=== PATIENT | male | born 1975 | race Caucasian/White ===

== ENCOUNTER 2018-11-26 14:28 | Emergency (ER) | payer MEDICARE, MEDICAID ==
[2018-11-26 14:51] VITALS: BP 158/82
[2018-11-26 15:41] LABS: BARBITURATE SCREEN,URINE NEGATIVE (NEGATIVE); BENZODIAZEPINES SCREEN,URINE POSITIVE (NEGATIVE); EDDP,URINE SCREEN NEGATIVE (NEGATIVE); METHAMPHETAMINE SCREEN, URINE POSITIVE (NEGATIVE)
[2018-11-26 15:42] LABS: TCA SCREEN,URINE NEGATIVE (NEGATIVE); THC SCREEN,URINE 50 NG/ML POSITIVE (NEGATIVE)
--- NOTE | 2018-11-26 15:49 | EDM.PDOCBH ---
ED HPI GENERAL MEDICAL PROBLEM - General Chief Complaint: Behavioral/Psych Time Seen by Provider: 11/26/18 14:33 Source of Information: Reports: Patient, Police History Limitations: Reports: Combative/Threatening, Uncooperative - History of Present Illness INITIAL COMMENTS - FREE TEXT/NARRATIVE: Pt brought here by law enforcement for evaluation for admit to [facility] [place] Pt with hx/ drug and alcohol abuse Pt to be seen by screener from [facility] Pt not currently taking any prescribed medication Onset: Gradual Duration: Chronic - Related Data Allergies Allergy/AdvReac Type Severity Reaction Status Date / Time No Known Allergies Allergy Verified 11/26/18 14:57 Home Meds: Home Meds . [No Known Home Meds] 02/25/16 [History] Past Medical History Cardiovascular History: Reports: Other (See Below) Other Cardiovascular History: pre-hypertensive Psychiatric History: Reports: Anxiety, Bipolar, Depression, PTSD Endocrine/Metabolic History: Reports: Other (See Below) Other Endocrine/Metabolic History: boarderline diabetic-no medications Social & Family History - Family History Family Medical History: Unobtainable - Tobacco Use Smoking Status *Q: Current Status Unknown - Recreational Drug Use Recreational Drug Use: Yes ED ROS GENERAL - Review of Systems Review Of Systems: See Below HEENT: Reports: No Symptoms Respiratory: Reports: No Symptoms Cardiovascular: Reports: No Symptoms GI/Abdominal: Reports: No Symptoms Skin: Reports: No Symptoms Neurological: Reports: No Symptoms Psychiatric: Reports: Agitation, Mood Lability ED EXAM, BEHAVIORAL HEALTH - Physical Exam Exam: See Below Exam Limited By: Uncooperative General Appearance: Anxious Throat/Mouth: Normal Oropharynx Neck: Supple Respiratory/Chest: Lungs Clear Cardiovascular: Regular Rate, Rhythm GI/Abdominal: Soft Neurological: No Motor/Sensory Deficits Psychiatric: Restless, Agitated, Grandiose Thoughts, Paranoid Thoughts, Threatening Behavior COURSE, BEHAVIORAL HEALTH COMP - Course Vital Signs: Last Vital Signs Temp 36.9 C 11/26/18 14:28 Pulse 107 H 11/26/18 14:28 Resp 16 11/26/18 14:28 BP 158/82 H 11/26/18 14:28 Pulse Ox 98 11/26/18 14:28 Orders, Labs, Meds: Laboratory Tests 11/26/18 Range/Units 15:25 Urine Opiates Screen Negative (NEAGTIVE) Ur Buprenorphine Scrn Negative (NEGATIVE) Ur Oxycodone Screen Negative (NEGATIVE) Ur EDDP (Meth Metab) Negative (NEGATIVE) Urine Methadone Screen Negative (NEGATIVE) Ur Barbiturates Screen Negative (NEGATIVE) Ur Tricyclics Screen Negative (NEGATIVE) Ur Phencyclidine Scrn Negative (NEGATIVE) Ur Amphetamine Screen Positive H (NEGATIVE) U Methamphetamines Scrn Positive H (NEGATIVE) Urine MDMA Screen Negative (NEGATIVE) U Benzodiazepines Scrn Positive H (NEGATIVE) U Cocaine Metab Screen Negative (NEGATIVE) U Marijuana (THC) Screen Positive H (NEGATIVE) Re-Assessment/Re-Exam: Pt seen in ER by [facility] screener Pt refused lab draw UDS positive for meth, amphetamines, THC and benzodiazepines Pt accepted at [facility] and transported via law enforcement Departure - Departure Time of Disposition: 15:50 Disposition: DC/Tfer to Psych Hosp/Unit [facility] Clinical Impression: Drug abuse, Alcohol abuse - Discharge Information *PRESCRIPTION DRUG MONITORING PROGRAM REVIEWED*: Not Applicable *COPY OF PRESCRIPTION DRUG MONITORING REPORT IN PATIENT AFIA: Not Applicable Referrals: PCP,Unknown [Primary Care Provider] -
== END 2018-11-26 15:47 ==
LOC: VM.ED 14:28
DX: F10.10 Alcohol abuse, uncomplicated (principal); F19.10 Other psychoactive substance abuse, uncomplicated
CPT/HCPCS: 80305-QW; 99283